=== PATIENT | female | born 1995 | race Caucasian/White ===

== ENCOUNTER 2017-01-28 14:13 | Emergency (ER) | payer MEDICAID ==
--- NOTE | 2017-01-28 15:27 | EDM.PDOC ---
ED HPI GENERAL MEDICAL PROBLEM - General Chief Complaint: [employer] Problem Stated Complaint: AND BLEEDING Time Seen by Provider: 01/28/17 14:40 Source of Information: Reports: Patient History Limitations: Reports: No Limitations - History of Present Illness INITIAL COMMENTS - FREE TEXT/NARRATIVE: History of present illness: [21-year-old female comes in complaining of vaginal bleeding on a daily basis at 2 PM. Patient indicates she has had a positive test [place]. But has had no followup save the one isolated positive test] Review of systems: As per history of present illness and below otherwise all systems reviewed and negative. Past medical history: As per history of present illness and as reviewed below otherwise noncontributory. Surgical history: As per history of present illness and as reviewed below otherwise noncontributory. Social history: No reported history of drug or alcohol abuse. Family history: As per history of present illness and as reviewed below otherwise noncontributory. Physical exam: HEENT: Atraumatic, normocephalic, pupils reactive, negative for conjunctival pallor or scleral icterus, mucous membranes moist, throat clear, neck supple, nontender, trachea midline. Lungs: Clear to auscultation, breath sounds equal bilaterally, chest nontender. Heart: S1S2, regular, negative for clicks, rubs, or JVD. Abdomen: Soft, nondistended, nontender. Negative for masses or hepatosplenomegaly. Negative for costovertebral tenderness. Pelvis: Stable nontender. Genitourinary: Deferred. Rectal: Deferred. Extremities: Atraumatic, negative for cords or calf pain. Neurovascular unremarkable. Neuro: Awake, alert, oriented. Cranial nerves II through XII unremarkable. Cerebellum unremarkable. Motor and sensory unremarkable throughout. Exam nonfocal. Global assessment is benign save her bedside in history of present illness Diagnostics: [CBC, CMP, UA, hCG,] Therapeutics: [] Impression: [Threatened ] Plan: [Followup with serum hCG in 48 hours] Definitive disposition and diagnosis as appropriate pending reevaluation and review of above. Lower Abdomen Pain Score (Numeric/FACES): 0 - Related Data Allergies Allergy/AdvReac Type Severity Reaction Status Date / Time No Known Allergies Allergy Verified 01/28/17 14:23 Home Meds: Home Meds . [No Known Home Meds] 05/12/16 [History] Past Medical History - Past Health History Medical/Surgical History: Denies Medical/Surgical History HEENT History: Reports: None Cardiovascular History: Reports: None Respiratory History: Reports: None Gastrointestinal History: Reports: None Genitourinary History: Reports: Pyelonephritis [employer] History: Reports: Polycystic Ovaries Musculoskeletal History: Reports: None Neurological History: Reports: None Psychiatric History: Reports: None Endocrine/Metabolic History: Reports: None Hematologic History: Reports: None Immunologic History: Reports: None Oncologic (Cancer) History: Reports: None Dermatologic History: Reports: None - Infectious Disease History Infectious Disease History: Reports: None - Past Surgical History Head Surgeries/Procedures: Reports: None Female Surgical History: Reports: Oophorectomy Social & Family History - Family History Family Medical History: Noncontributory - Tobacco Use Smoking Status *Q: Current Some Day Smoker Years of Tobacco use: 3 Packs/Tins Daily: 0.2 - Caffeine Use Caffeine Use: Reports: Coffee - Alcohol Use Days Per Week of Alcohol Use: 1 Number of Drinks Per Day: 7 Total Drinks Per Week: 7 - Recreational Drug Use Recreational Drug Use: Yes Drug Use in Last 12 Months: Yes Recreational Drug Type: Reports: Marijuana/Hashish Recreational Drug Use Frequency: Not Used In Over 2 Months ED ROS GENERAL - Review of Systems Review Of Systems: See Below (History of present illness) ED EXAM - Physical Exam Exam: See Below (See history of present illness) Course - Vital Signs Last Recorded V/S: Last Vital Signs Temp 36.7 C 01/28/17 14:23 Pulse 106 H 01/28/17 14:23 Resp 18 01/28/17 14:23 BP 136/75 01/28/17 14:23 Pulse Ox 98 01/28/17 14:23 - Orders/Labs/Meds Orders: Active Orders 24 hr Category Date Time Status OB 1st Tri Sgl 1st Gest [US] Stat Exams 01/28/17 14:44 Taken Labs: Laboratory Tests 01/28/17 01/28/17 01/28/17 Range/Units 14:45 14:45 14:55 WBC 11.14 H (4.0-11.0) K/uL RBC 3.97 L (4.30-5.90) M/uL Hgb 12.3 (12.0-16.0) g/dL Hct 37.0 (36.0-46.0) % MCV 93.2 (80.0-98.0) fL MCH 31.0 (27.0-32.0) pg MCHC 33.2 (31.0-37.0) g/dL RDW Std Deviation 48.4 (28.0-62.0) fl RDW Coeff of Demond 14 (11.0-15.0) % Plt Count 275 (150-400) K/uL MPV 10.30 (7.40-12.00) fL Neut % (Auto) 70.9 (48.0-80.0) % Lymph % (Auto) 22.3 (16.0-40.0) % Gaines % (Auto) 5.9 (0.0-15.0) % Eos % (Auto) 0.8 (0.0-7.0) % Baso % (Auto) 0.1 (0.0-1.5) % Neut # (Auto) 7.9 H (1.4-5.7) K/uL Lymph # (Auto) 2.5 H (0.6-2.4) K/uL Gaines # (Auto) 0.7 (0.0-0.8) K/uL Eos # (Auto) 0.1 (0.0-0.7) K/uL Baso # (Auto) 0.0 (0.0-0.1) K/uL Nucleated RBC % 0.0 /100WBC Nucleated RBCs # 0 K/uL HCG, Quant mIU/mL Urine Color YELLOW Urine Appearance CLEAR Urine pH 6.0 (5.0-8.0) Ur Specific [place] 1.025 (1.001-1.035) Urine Protein NEGATIVE (NEGATIVE) mg/dL Urine Glucose (UA) NEGATIVE (NEGATIVE) mg/dL Urine Ketones NEGATIVE (NEGATIVE) mg/dL Urine Occult Blood TRACE-LYSED (NEGATIVE) Urine Nitrite NEGATIVE (NEGATIVE) Urine Bilirubin NEGATIVE (NEGATIVE) Urine Urobilinogen 0.2 (<2.0) EU/dL Ur Leukocyte Esterase NEGATIVE (NEGATIVE) Urine RBC 1-2 (0-2/HPF) Urine WBC 0-1 (0-5/HPF) Ur Epithelial Cells FEW (NONE-FEW) Amorphous Sediment FEW (NEGATIVE) Urine Bacteria RARE (NEGATIVE) Urine HCG, Qual POSITIVE (NEGATIVE) Blood Type 01/28/17 01/28/17 Range/Units 14:55 14:55 WBC (4.0-11.0) K/uL RBC (4.30-5.90) M/uL Hgb (12.0-16.0) g/dL Hct (36.0-46.0) % MCV (80.0-98.0) fL MCH (27.0-32.0) pg MCHC (31.0-37.0) g/dL RDW Std Deviation (28.0-62.0) fl RDW Coeff of Demond (11.0-15.0) % Plt Count (150-400) K/uL MPV (7.40-12.00) fL Neut % (Auto) (48.0-80.0) % Lymph % (Auto) (16.0-40.0) % Gaines % (Auto) (0.0-15.0) % Eos % (Auto) (0.0-7.0) % Baso % (Auto) (0.0-1.5) % Neut # (Auto) (1.4-5.7) K/uL Lymph # (Auto) (0.6-2.4) K/uL Gaines # (Auto) (0.0-0.8) K/uL Eos # (Auto) (0.0-0.7) K/uL Baso # (Auto) (0.0-0.1) K/uL Nucleated RBC % /100WBC Nucleated RBCs # K/uL HCG, Quant 42354.1 mIU/mL Urine Color Urine Appearance Urine pH (5.0-8.0) Ur Specific [place] (1.001-1.035) Urine Protein (NEGATIVE) mg/dL Urine Glucose (UA) (NEGATIVE) mg/dL Urine Ketones (NEGATIVE) mg/dL Urine Occult Blood (NEGATIVE) Urine Nitrite (NEGATIVE) Urine Bilirubin (NEGATIVE) Urine Urobilinogen (<2.0) EU/dL Ur Leukocyte Esterase (NEGATIVE) Urine RBC (0-2/HPF) Urine WBC (0-5/HPF) Ur Epithelial Cells (NONE-FEW) Amorphous Sediment (NEGATIVE) Urine Bacteria (NEGATIVE) Urine HCG, Qual (NEGATIVE) Blood Type O POSITIVE Departure - Departure Time of Disposition: 16:09 Disposition: Home, Self-Care 01 Condition: good Clinical Impression: Threatened - Discharge Information Forms: ED Department Discharge Additional Instructions: The following information is given to patients seen in the emergency department who are being discharged to home. This information is to outline your options for follow-up care. We provide all patients seen in our emergency department with a follow-up referral. The need for follow-up, as well as the timing and circumstances, are variable depending upon the specifics of your emergency department visit. If you don't have a primary care physician on staff, we will provide you with a referral. We always advise you to contact your personal physician following an emergency department visit to inform them of the circumstance of the visit and for follow-up with them and/or the need for any referrals to a consulting specialist. The emergency department will also refer you to a specialist when appropriate. This referral assures that you have the opportunity for follow-up care with a specialist. All of these measure are taken in an effort to provide you with optimal care, which includes your follow-up. Under all circumstances we always encourage you to contact your private physician who remains a resource for coordinating your care. When calling for follow-up care, please make the office aware that this follow-up is from your recent emergency room visit. If for any reason you are refused follow-up, please contact the [facility] Emergency Department at and asked to speak to the emergency department charge nurse. Followup for a serum hCG level in 48 hours Return to your [employer], call for followup in one to 2 days Return to ED as needed as discussed - My Orders Last 24 Hours: My Active Orders 01/28/17 14:44 OB 1st Tri Sgl 1st Gest [US] Stat - Assessment/Plan Last 24 Hours: My Active Orders 01/28/17 14:44 OB 1st Tri Sgl 1st Gest [US] Stat
--- NOTE | 2017-01-28 16:33 | US ---
EXAM DATE: 01/28/17 PATIENT'S AGE: 21 Patient: KERRY BERRY Facility: [place], [place] Site . Site : 1995 Study: US OB Pelvis [id number]/1/2017 3:34:23 PM Ordering Physician: Doctor Diane Final Report: INDICATION: Vaginal bleeding. Positive test. TECHNIQUE: Ultrasound pelvis transabdominal with grayscale and color Doppler imaging. COMPARISON: None. FINDINGS: There is an intrauterine gestational sac and yolk sac. The pole is not well demonstrated. No heart tones demonstrated. The uterus is otherwise unremarkable. Left ovary is 2.7 x 1.6 x 1.8 cm. Left ovary is within normal limits. Normal-appearing color Doppler flow in the left ovary. Right ovary is surgically absent. No pelvic free fluid. IMPRESSION: pole is not well demonstrated on this transabdominal study. No heart tones demonstrated. Findings are worrisome for demise. Followup imaging via a transvaginal approach could be considered for follow-up or to confirm demise as necessary. Dictated by Ehsan Hinton MD @ 01/28/2017 4:22:27 PM Dictated by: Ehsan Hinton MD @ 01/28/2017 16:22:46 (Electronic Signature) Report Signed by Proxy. JUAN
[2017-01-28 18:31] VITALS: BP 110/69
--- NOTE | 2017-01-29 10:56 | US ---
EXAM DATE: 01/28/17 PATIENT'S AGE: 21 Patient: KERRY BERRY Facility: [place], [place] Site . Site : 1995 Study: US OB Pelvis [id number]/1/[id number] 5:09:52 PM Ordering Physician: Doctor Diane Final Report: INDICATION: Vaginal bleeding, concern for demise on earlier transabdominal ultrasound. TECHNIQUE: Ultrasound OB pelvis. Real-time beth-scale imaging of the pelvis was performed. Endovaginal imaging only. COMPARISON: Transabdominal OB ultrasound earlier on 01/28/2017. FINDINGS: Intrauterine gestational sac identified. The mean gestational sac diameter measures 1.6 centimeters, corresponding to gestational age of 6 weeks 3 days. Scattered septations within the gestational sac. No pole or yolk sac identified. Right ovary is surgically absent. Left ovary normal. No significant free pelvic fluid. IMPRESSION: 1. Failed 1st trimester intrauterine . Findings correlate with earlier transabdominal study. 2. Estimated gestational age based on LMP 7 weeks 1 day. Gestational age based on mean sac diameter corresponds to 6 weeks 3 days. 3. No pole, yolk sac, or cardiac activity identified. Dictated by Navin Carrington MD @ 01/28/2017 5:59:47 PM Dictated by: Navin Carrington MD @ 01/28/2017 18:00:08 (Electronic Signature) Report Signed by Proxy. JUAN
== END 2017-01-28 18:28 | disposition home or self-care (01) ==
LOC: MW.ED 14:13
DX: O20.0 Threatened abortion (principal); F17.210 Nicotine dependence, cigarettes, uncomplicated
CPT/HCPCS: 36415; 76801; 76801-26; 76817; 76817-26; 81001; 81025; 84702; 85025; 86900; 86901; 99283; 99284-25